=== PATIENT | female | born 1995 | race Caucasian/White ===

== ENCOUNTER 2019-12-11 16:43 | Emergency (ER) | payer OTHER ==
[~2019-12-11] VITALS: Ht 157.5 cm; Wt 53.3 kg
--- NOTE | 2019-12-11 17:32 | NUR ---
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
--- NOTE | 2019-12-11 17:33 | NUR ---
assumed care of pt. as
--- NOTE | 2019-12-11 17:40 | NUR ---
Alex in room for eval. pt c/o rash started sat, also cough, sore throat, achey. flu/strep/upreg/cxr neg at . pt c/o nausea, vomited on tues. c/o weak/fatigue. flat red rash over body. pt taking apap at home. call [facility] in reach. nad. as
[2019-12-11 18:12] LABS: BASOPHILS # (AUTO) 0.01 x10^3/uL (0-0.1); BASOPHILS % (AUTO) 0 % (0-1); EOSINOPHILS # (AUTO) 0.32 x10^3/uL (0-0.4); EOSINOPHILS % (AUTO) 9 % (1-7); LYMPHOCYTES # (AUTO) 0.45 x10^3/uL (1-3.4); LYMPHOCYTES % (AUTO) 12 % (22-44); MD NO; MEAN CORPUSCULAR HEMOGLOBIN 31.4 pg (27.0-34.8); MEAN CORPUSCULAR HGB CONC 34.7 g/dL (32.4-35.8); MEAN CORPUSCULAR VOLUME 90.5 fL (80-100); MEAN PLATELET VOLUME 8.7 fL (7.4-10.4); MONOCYTES # (AUTO) 0.56 x10^3/uL (0.2-0.8); MONOCYTES % (AUTO) 16 % (2-9); NEUTROPHILS # (AUTO) 2.27 x10^3/uL (1.8-6.8); NEUTROPHILS % (AUTO) 63 % (42-75); PLATELET COUNT 162 x10^3/uL (130-400); RED BLOOD COUNT 4.78 x10^6/uL (3.82-5.3); RED CELL DISTRIBUTION WIDTH 12.9 % (9.6-15.2)
[2019-12-11 18:19] LABS: ALBUMIN 3.6 g/dL (3.4-5.0); ANION GAP 8 mmol/L (5-15); CALCIUM 8.7 mg/dL (8.5-10.1); CHLORIDE 106 mmol/L (98-107)
--- NOTE | 2019-12-11 18:49 | NUR ---
report to susan carlson. mono pending. as
--- NOTE | 2019-12-11 18:50 | NUR ---
REPORT FROM ROSALIND HOANG. PT WAITING FOR LABS. PT HAS NO NEEDS AT THIS TIME. CALL [facility] IN REACH
[2019-12-11 19:54] VITALS: BP 120/91
--- NOTE | 2019-12-11 20:24 | NUR ---
Patient given discharge instructions and they have confirmed that they understand the instructions. Patient ambulatory with steady gait.
== END 2019-12-11 20:26 | disposition home or self-care (01) ==
LOC: ED 20:00
DX: B34.9 Viral infection, unspecified (principal); R11.2 Nausea with vomiting, unspecified
CPT/HCPCS: 36415; 80048; 82040; 85025; 86308; 99283